=== PATIENT | female | born 1955 | race African-American/Black ===

== ENCOUNTER → 2019-11-25 | Outpatient (CLI) | payer MEDICARE, OTHER ==
[~2019-11-25] MED LIST: ALBU2.5V8 INH; ALOG25TA PO; ASPI-630 PO; ATOR20TA58 PO; BENZ100C PO; EMPA10TA PO; FLUT9.9S NS; GLIP10TA13 PO; METF10007 PO; PANT40TA77 PO
--- NOTE | 2019-11-25 16:38 | RAD ---
PELVIS COMPLETE History: Pelvic pain, postmenopausal Comparison: None. Findings: Multiple transabdominal sonographic images of the pelvis are submitted. Uterus measured 7.7 x 5.5 x 3.6 cm. Endometrium measures 0.84 cm, considered thickened in a postmenopausal patient. Right ovary measured 2.4 x 1.6 x 1.6 cm. Left ovary measured 2.5 x 1.1 x 1.3 cm. There is normal low resistance vascularity of the bilateral ovaries. There is no demonstrable free fluid. Impression: 1. There is thickening of the endometrium which could be due to hyperplasia although neoplasm not excluded. Electronically signed by: Kalen Sims MD (11/25/2019 4:35 PM) [facility]
== END | disposition home or self-care (01) ==
LOC: US 15:10
PROVIDERS: ATTEND Obstetrics & Gynecology
DX: R93.89 Abnormal findings on diagnostic imaging of other specified body structures (principal); R10.2 Pelvic and perineal pain
CPT/HCPCS: 76856

== ENCOUNTER → 2019-11-27 | Outpatient (CLI) | payer MEDICARE, OTHER ==
[~2019-11-27] MED LIST changes: +IBUP-1060 PO; +OXYC-325 PO; +OXYC1TAB15 PO
--- NOTE | 2019-11-28 10:57 | NUR ---
IP:Pt is COVID negative.
== END | disposition home or self-care (01) ==
LOC: LAB 13:32
PROVIDERS: ATTEND Obstetrics & Gynecology
DX: Z01.812 Encounter for preprocedural laboratory examination (principal); Z11.59 Encounter for screening for other viral diseases; N95.0 Postmenopausal bleeding
CPT/HCPCS: 36415; 87635

== ENCOUNTER → 2019-12-01 | Day surgery (SDC) | payer MEDICARE, OTHER ==
[~2019-12-01] MED LIST changes: +DEXAMETHASONE SOD PHOS 4 MG/ML VIAL ONE; +HYDROmorphone 2 MG/ML VIAL IV PRN; +INSULIN LISPRO 100 UNIT/ML 3ML VIAL for OP,RR ONLY. SQ PRN; +IV RINGERS,LACTATED 1000ML 1,000 ML IV SCH; +LIDOCAINE 1% PF 2 ML VIAL. ID PRN; +LIDOCAINE 2% PF 5 ML VIAL. ONE; +MIDAZOLAM HCL/PF 2 MG/2 ML VIAL. ONE; +MORPHINE SULFATE 2 MG/ML VIAL. IV PRN; +ONDANSETRON PF 4 MG/2 ML VIAL. IV PRN; +ONDANSETRON PF 4 MG/2 ML VIAL. ONE; +PHENYLEPHRINE in 0.9% NACL PF 1 MG/10 ML SYRINGE. IV ONE; +PROCHLORPERAZINE 10 MG/2 ML VIAL. IV PRN; +PROPOFOL 10 MG/ML (20ML) VIAL. IV ONE; +fentaNYL PF VIAL 100 MCG/2 ML VIAL IV PRN; +fentaNYL PF VIAL 100 MCG/2 ML VIAL ONE; +oxyCODONE/APAP 5/325 1 TAB TABLET PO ONE
--- NOTE | 2019-12-01 10:10 | PDOC4 ---
OPERATIVE NOTE: PreOp Dx: 1.) PMB, 2.) Thicken endometrium 8.4 mm, 3.) RLQ pain, 4.) h/o dysplasia, 5.) DM II, 6.) H/o DVT PostOp Dx: same Procedure: H/S, D&C Surgeon: Mali Hu Anesthesia: LMA EBL: 100cc Findings: benign appearing endometrium Complications: midline perforation Path: endometrial curettage SANGEETA HU MD December 01, 2019 10:10
[2019-12-01 10:30] LABS: BASO % 0 % (0-3); EOS # 0.1 x10^3/uL (0.0-0.7); EOS % 1 % (0-3); HEMATOCRIT 40.5 % (36.0-47.0); HEMOGLOBIN 13.2 g/dL (12.0-15.5); LYMPH # 1.3 x10^3/uL (1.0-4.8); LYMPH % 20 % (24-48); MEAN CORPUSCULAR HEMOGLOBIN 29 pg (25-35); MEAN CORPUSCULAR HGB CONC 33 g/dL (31-37); MEAN CORPUSCULAR VOLUME 88 fL (79-100); MONO # 0.6 x10^3/uL (0.0-1.1); MONO % 9 % (0-9); NEUT # 4.5 x10^3/uL (1.8-7.7); NEUT % 70 % (31-73); PLATELET COUNT 227 x10^3/uL (140-400); RED BLOOD COUNT 4.61 x10^6/uL (3.50-5.40); RED CELL DISTRIBUTION WIDTH 14.6 % (11.5-14.5); WHITE BLOOD COUNT 6.5 x10^3/uL (4.0-11.0)
[2019-12-01 11:10] VITALS: BP 119/70
--- NOTE | 2019-12-01 12:43 | OP ---
DATE OF SURGERY: 12/01/2019 PREOPERATIVE DIAGNOSES: 1. Postmenopausal bleeding. 2. Thickened endometrial stripe of 8.4 mm. 3. Right lower quadrant pain. 4. History of dysplasia. 5. Diabetes type 2. 6. History of deep venous thrombosis. POSTOPERATIVE DIAGNOSES: 1. Postmenopausal bleeding. 2. Thickened endometrial stripe of 8.4 mm. 3. Right lower quadrant pain. 4. History of dysplasia. 5. Diabetes type 2. 6. History of deep venous thrombosis. PROCEDURE: Hysteroscopy, D and C. SURGEON: Gus Hu MD. ANESTHESIA: LMA. ESTIMATED BLOOD LOSS: 100 mL. FINDINGS: Benign appearing endometrium. No specific abnormalities seen. Possible question of whether if the sampling was performed in a false path in the myometrium created by the dilation or whether the sample was collected in the endometrial cavity. COMPLICATIONS: Uterine perforation. PATHOLOGY: Endometrial curetting. DESCRIPTION OF PROCEDURE: The patient was taken to the operating room where LMA was placed without difficulty. The patient was prepped and draped in normal sterile fashion. Speculum was placed in the patient's vagina and cervix was visualized. The anterior lip of the cervix was then dilated with a single tooth tenaculum. The smallest dilator was attempted to be passed, but we could not due to the significant stenosis. More force was applied and the dilator was able to be passed. The cervix was then serially dilated until the allowance of the hysteroscope. Once the hysteroscope was placed, the depth was further than expected and visualization of the intra-abdominal cavity was found making it clear that the uterus had been perforated. At that point, the hysteroscope was withdrawn back into the endometrial cavity. The endometrial cavity appeared benign, although it was unclear if this was a false path created by the dilation or actually the endometrial cavity due to unable to find certain landmarks like the tubal ostia. Once the hysteroscope was removed, the uterine sound was used to find the fundus of the uterus. This was found to be 7 cm. At that point, a curettage was performed by first pressing the curette against the fundus, and then performing the curetting to collect the sample. Curettage was performed in all 4 quadrants. The specimen was sent to pathology. Once this was completed, the hysteroscope was replaced just to ensure that the sample was collected from the endometrial cavity and not the cervical canal. The cervical canal did not appear to be traumatized by the curettage and making it more likely that the sample was collected from the uterine cavity. The flow on the hysteroscope was stopped to make sure there was no active bleeding from the perforation site. No bleeding was seen. At that point, the hysteroscope was removed followed by the tenaculum. Good hemostasis was noted at the tenaculum site. The patient tolerated the procedure well and was taken to the recovery room in stable condition. A preoperative hemoglobin and type were obtained prior to the procedure because they clotted, so they were obtained in the recovery room post-procedure. The patient's daughter was called and briefly reviewed the above, particularly the potential of the creation of a false path which would mean the endometrial cavity may have not been actually sampled and what future implications that would have on the evaluation of her postmenopausal bleeding and endometrial thickness. GUS HU MD DR: IRINA/baldemar JOB#: [id number] / [id number] ADELFO
--- NOTE | 2019-12-02 15:07 | PATHOLOGY ---
[facility] Accession Number: [id number] . 01 Material submitted: . endometrium - ENDOMETRIAL CURETTAGE . 01 Clinical history: . Postmenopausal bleeding, pelvic pain . 02 Diagnosis: Endometrial curettings: - Scant segments of benign squamous and endocervical mucosa. See comment. (JPM:baljit; 12/02/2019) QMS 12/02/2019 0919 Local . 02 Comment: Sections of the endometrial curettings reveal scant segments of benign squamous and endocervical mucosa. There is no endometrial tissue identified. There is no evidence of malignancy. (JPM:baljit; 12/02/2019) . 02 Electronically signed: . Villa Patel MD, Pathologist NPI- [id number] . 01 Gross description: . The specimen is received in formalin, labeled "Annalee Felix, endometrial curettage" and consists of scant pink-quiñones possible tissue measuring 0.6 x 0.5 x 0.1 cm which is entirely submitted in A1. Due to the nature of the specimen it may not survive processing. (SDY; 12/01/2019) SYU/SYU 12/02/2019 0920 Local . 02 Pathologist provided ICD-10: N95.0 . 02 CPT . 703932 Specimen Comment: A courtesy copy of this report has been sent to [phone] Specimen Comment: [id number] Specimen Comment: Report sent to / DR CASILLAS Specimen Comment: A duplicate report has been generated due to demographic updates. Performed at: 01 [facility] [id number] [facility] [address], [place], [place] [id number] MD Keon Echeverria MD Phone: [phone] Performed at: 02 [facility] [address] [place], [place] [id number] MD Villa Patel MD Phone: [phone]
== END ==
LOC: SURG 08:02
PROVIDERS: ATTEND Obstetrics & Gynecology
DX: N95.0 Postmenopausal bleeding (principal); E11.9 Type 2 diabetes mellitus without complications; Z79.84 Long term (current) use of oral hypoglycemic drugs
CPT/HCPCS: 36415; 58558; 82962; 85025; 86850; 86900; 86901; A7015; J1100; J2250; J2370; J2405; J2704; J3010; J3490; J7030; 88305; J1815

== ENCOUNTER → 2019-12-17 | Outpatient (CLI) | payer MEDICARE, OTHER ==
[2019-12-01 11:10] VITALS: BP 119/70
[~2019-12-17] MED LIST changes: -DEXAMETHASONE SOD PHOS 4 MG/ML VIAL ONE; -HYDROmorphone 2 MG/ML VIAL IV PRN; -INSULIN LISPRO 100 UNIT/ML 3ML VIAL for OP,RR ONLY. SQ PRN; -IV RINGERS,LACTATED 1000ML 1,000 ML IV SCH; -LIDOCAINE 1% PF 2 ML VIAL. ID PRN; -LIDOCAINE 2% PF 5 ML VIAL. ONE; -MIDAZOLAM HCL/PF 2 MG/2 ML VIAL. ONE; -MORPHINE SULFATE 2 MG/ML VIAL. IV PRN; -ONDANSETRON PF 4 MG/2 ML VIAL. IV PRN; -ONDANSETRON PF 4 MG/2 ML VIAL. ONE; -PHENYLEPHRINE in 0.9% NACL PF 1 MG/10 ML SYRINGE. IV ONE; -PROCHLORPERAZINE 10 MG/2 ML VIAL. IV PRN; -PROPOFOL 10 MG/ML (20ML) VIAL. IV ONE; -fentaNYL PF VIAL 100 MCG/2 ML VIAL IV PRN; -fentaNYL PF VIAL 100 MCG/2 ML VIAL ONE; -oxyCODONE/APAP 5/325 1 TAB TABLET PO ONE
== END | disposition home or self-care (01) ==
LOC: LAB 14:27
PROVIDERS: ATTEND Obstetrics & Gynecology
DX: Z01.818 Encounter for other preprocedural examination (principal); Z11.59 Encounter for screening for other viral diseases; N95.0 Postmenopausal bleeding
CPT/HCPCS: C9803; U0003; 36415

== ENCOUNTER 2019-12-21 07:40 | Day surgery (SDC) | payer MEDICARE, OTHER ==
[~2019-12-21 07:40] MED LIST changes: +HYDROmorphone 2 MG/ML VIAL IV PRN; +IV RINGERS,LACTATED 1000ML 1,000 ML IV SCH; +LIDOCAINE 1% PF 2 ML VIAL. ID PRN; +MORPHINE SULFATE 2 MG/ML VIAL. IV PRN; +ONDANSETRON PF 4 MG/2 ML VIAL. IV PRN; +PROCHLORPERAZINE 10 MG/2 ML VIAL. IV PRN; +fentaNYL PF VIAL 100 MCG/2 ML VIAL IV PRN
[2019-12-21] MEDS ORDERED: DEXAMETHASONE SOD PHOS 4 MG/ML VIAL ONE (08:27)
[2019-12-21] MEDS ORDERED: LIDOCAINE 2% PF 5 ML VIAL. ONE (08:27)
[2019-12-21] MEDS ORDERED: ONDANSETRON PF 4 MG/2 ML VIAL. ONE (08:27)
[2019-12-21] MEDS ORDERED: PROPOFOL 10 MG/ML (20ML) VIAL. IV ONE ×2 (08:27→09:36)
[2019-12-21] MEDS ORDERED: INSULIN LISPRO 100 UNIT/ML 3ML VIAL for OP,RR ONLY. SQ PRN (08:30)
[2019-12-21 08:31] LABS: BASO # 0.1 x10^3/uL (0.0-0.2); BASO % 1 % (0-3); EOS # 0.2 x10^3/uL (0.0-0.7); EOS % 3 % (0-3); HEMATOCRIT 38.2 % (36.0-47.0); HEMOGLOBIN 12.6 g/dL (12.0-15.5); LYMPH # 1.2 x10^3/uL (1.0-4.8); LYMPH % 19 % (24-48); MEAN CORPUSCULAR HEMOGLOBIN 29 pg (25-35); MEAN CORPUSCULAR HGB CONC 33 g/dL (31-37); MEAN CORPUSCULAR VOLUME 87 fL (79-100); MONO # 0.4 x10^3/uL (0.0-1.1); MONO % 7 % (0-9); NEUT # 4.2 x10^3/uL (1.8-7.7); NEUT % 70 % (31-73); PLATELET COUNT 238 x10^3/uL (140-400); RED BLOOD COUNT 4.39 x10^6/uL (3.50-5.40); RED CELL DISTRIBUTION WIDTH 14.2 % (11.5-14.5)
[2019-12-21] MEDS ORDERED: VASOPRESSIN 20 UNIT/ML VIAL. ONE (08:40)
[2019-12-21] MEDS ORDERED: fentaNYL PF VIAL 100 MCG/2 ML VIAL ONE (09:15)
[2019-12-21] MEDS ORDERED: SEVOFLURANE 31 TO 60 MINUTES. IH ONE (09:36)
[2019-12-21] MEDS ORDERED: GLYCOPYRROLATE 1 MG/5 ML VIAL. ONE (09:36)
[2019-12-21] MEDS ORDERED: FAMOTIDINE 20 MG/2 ML VIAL ONE (09:36)
[2019-12-21] MEDS ORDERED: IBUP-1060 PO (09:39)
[2019-12-21] MEDS ORDERED: OXYC1TAB15 PO (09:39)
--- NOTE | 2019-12-21 10:00 | PDOC4 ---
OPERATIVE NOTE: PreOp Dx: 1.) PMB, 2.) Thicken endometrium 8.4 mm, 3.) cervical stenosis, 4.) h/o dysplasia, 5.) previous failed H/S, 6.) DM II, 7.) H/o DVT PostOp Dx: same Procedure: H/S, D&C Surgeon: Mali Hu Anesthesia: LMA EBL: 100cc Findings: atrophic appearing endometrium Complications: none Path: endometrial curettage SANGEETA HU MD Dec 21, 2019 09:59
[2019-12-21] MEDS ORDERED: oxyCODONE/APAP 5/325 1 TAB TABLET PO ONE (10:45)
[2019-12-21 11:33] VITALS: BP 138/75
--- NOTE | 2019-12-21 12:11 | OP ---
DATE OF SURGERY: 12/21/2019 PREOPERATIVE DIAGNOSES: 1. Postmenopausal bleeding. 2. Thickened endometrium. 3. Cervical stenosis. 4. History of dysplasia. 5. Previous failed hysteroscopy. 6. Diabetes. 7. History of deep venous thrombosis. POSTOPERATIVE DIAGNOSES: 1. Postmenopausal bleeding. 2. Thickened endometrium. 3. Cervical stenosis. 4. History of dysplasia. 5. Previous failed hysteroscopy. 6. Diabetes. 7. History of deep venous thrombosis. PROCEDURE: Hysteroscopy, D and C. SURGEON: Gus Hu MD ANESTHESIA: LMA. ESTIMATED BLOOD LOSS: 100 mL. FINDINGS: Atrophic-appearing endometrium. COMPLICATIONS: None. PATHOLOGY: Endometrial curetting. INDICATIONS: The patient is a 64-year-old 2, para 2-0-0-2, who originally presented with postmenopausal bleeding. The patient underwent an ultrasound revealing endometrial lining measuring 8.4 mm. The patient was unable to be sampled in the office due to cervical stenosis. The patient was scheduled for hysteroscopy, D and C on 12/01/2019. Due to her cervical stenosis, the patient's cervix was still unable to be entered and ultimately lead to the creation of a false path and perforation. The sample that was obtained during the surgery only revealed cervical cells. When the patient returned to the office, we discussed the risks, benefits, and alternatives of 3 options, one of which being giving cervical ripening agents with the assistance of estrogen to make cervical ripening agent more effective, two discussed performing a hysterectomy without sampling and then three discussed a referral to a specialist like [employer]/Oncology. The patient ultimately decided to go with a cervical ripening agent. The patient was placed on 2 weeks of vaginal estrogen and then to take misoprostol the night prior to surgery. We discussed the risk of vaginal estrogen with the understanding that we were attempting to rule out endometrial cancer/hyperplasia and her history of a DVT. The risk were felt to be low given the short duration of the vaginal estrogen over benefits of avoiding major surgery. DESCRIPTION OF PROCEDURE: The patient was taken to the operating room where LMA was placed without difficulty. The patient was prepped and draped in normal sterile fashion. A speculum was placed in the patient's vagina to visualize the cervix. The anterior lip of the cervix was then grasped with a single tooth tenaculum. The cervix appeared to be sufficiently dilated to allow for the uterine sound to be placed. The uterus sounded to 8.5 cm. At that point, a dilator approximately the same diameter as the hysteroscope was then placed without difficulty. The hysteroscope was then placed afterwards. Examination of the uterine cavity revealed both ostia present. The endometrium appeared atrophic. At that point, the hysteroscope was removed and curetting was performed in all 4 quadrants. The specimen was sent to the pathology. Once completed, the single tooth tenaculum was removed. No bleeding was seen at the tenaculum site. Good hemostasis was noted. At that point, the patient was taken to the recovery room in stable condition. GUS HU MD DR: IRINA/baldemar JOB#: [id number] / [id number] ADELFO
--- NOTE | 2019-12-23 08:07 | PATHOLOGY ---
[facility] Accession Number: [id number] . 01 Material submitted: . endometrium - ENDOMETRIAL CURETTINGS . 01 Clinical history: . pelvic pain, discharge . 02 Diagnosis: Endometrial curettings: - Atrophic endometrium showing focal recent intrastromal hemorrhage. - Segments of benign squamous epithelium. LBQ 12/22/2019 1605 Local . 02 Comment: Sections of the endometrial curettings reveal blood clot and several segments of atrophic endometrium showing focal recent intrastromal hemorrhage. There are also segments of benign squamous epithelium identified. There is no evidence of endometrial hyperplasia or malignancy. (JPM/db; 12/22/2019) . 02 Electronically signed: . Villa Patel MD, Pathologist NPI- [id number] . 01 Gross description: . Received in formalin labeled "Annalee Felix, endometrial curettings" is soft, mucoid, and hemorrhagic quiñones-brown tissue measuring 2.0 x 1.1 x 0.3 cm which is entirely submitted in A1.(SDY; 12/21/2019) SYU/SYU 12/21/2019 1753 Local . 02 Pathologist provided ICD-10: N85.8, R10.2 . 02 CPT . 545241 Specimen Comment: A courtesy copy of this report has been sent to [phone] Specimen Comment: [id number] Specimen Comment: Report sent to / DR CASILLAS Performed at: 01 [facility] [address] [facility] [address], [place] [id number] MD Keon Echeverria MD Phone: [phone] Performed at: 02 [facility] [address] [place], [place] [id number] MD Villa Patel MD Phone: [phone]
== END 2019-12-21 11:52 | disposition home or self-care (01) ==
LOC: SURG 07:40
PROVIDERS: ATTEND Obstetrics & Gynecology
DX: N95.0 Postmenopausal bleeding (principal); N88.2 Stricture and stenosis of cervix uteri; J45.909 Unspecified asthma, uncomplicated; K21.9 Gastro-esophageal reflux disease without esophagitis; E66.9 Obesity, unspecified; E78.00 Pure hypercholesterolemia, unspecified; E11.9 Type 2 diabetes mellitus without complications; Z72.89 Other problems related to lifestyle; Z79.84 Long term (current) use of oral hypoglycemic drugs; Z68.34 Body mass index [BMI] 34.0-34.9, adult; Z86.718 Personal history of other venous thrombosis and embolism; Z90.49 Acquired absence of other specified parts of digestive tract; Z87.442 Personal history of urinary calculi
CPT/HCPCS: 36415; 58558; 82962; 85025; 86850; 86900; 86901; J1100; J2405; J2704; J3010; J3490; J1815; J7030